=== PATIENT | female | born 1985 | race Caucasian/White ===

== ENCOUNTER 2018-05-12 11:00 | Outpatient (CLI) | payer MEDICAID ==
--- NOTE | 2018-05-12 11:35 | Non Stress Test Report ---
Non Stress Test Datetime Report Generated by CPN: 05/12/2018 11:35 DEMOGRAPHIC EGA NST: 37.3 INDICATION Indication for Study: Polyhydramnios; Diabetes Mellitus VITAL SIGNS Temperature - NST: 97.7 Pulse - NST: 90 RESP - NST: 18 NBPSYS NST: 115 NBPDIA NST: 61 MONITORING Monitor Explained: Monitor Explained; Test Explained; Patient Verbalized Understanding Time on Monitor: 05/12/2018 11:14 Time off Monitor: 05/12/2018 11:34 NST Duration: 20 NST INTERVENTIONS NST Interventions: PO Hydration; Reposition Patient Physician Notified NST: DR VALERA BABY A: [id number] BABY A Movement : Present Contraction Frequency : NONE FHR Baseline : 135 Accelerations : 15X15 Decelerations : None Variability : Moderate 6-25bpm NST Review: Meets Criteria for Reactive NST NST Review and Verified By : JAZLYN Lawler Results: Reactive NST REPORT Report Trigger: Send Report
== END 2018-05-12 11:40 | disposition home or self-care (01) ==
LOC: LC 11:00
PROVIDERS: ATTEND Student in an Organized Health Care Education/Training Program
PROC: 4A1HXCZ Monitoring of Products of Conception, Cardiac Rate, External Approach (ICD-10-PCS; principal; 2018-05-12)
DX: O40.3XX0 Polyhydramnios, third trimester, not applicable or unspecified (principal); O24.419 Gestational diabetes mellitus in pregnancy, unspecified control; Z3A.37 37 weeks gestation of pregnancy
CPT/HCPCS: 59025

== ENCOUNTER 2018-05-23 06:07 | Inpatient (IN) | payer MEDICAID ==
[2018-05-20 11:16] LABS: ABSOLUTE LYMPHOCYTES (AUTO) 1.6 10^3/uL (0.5-4.7); ABSOLUTE MONOCYTES (AUTO) 0.6 10^3/uL (0.1-1.4); BASOPHILS % (AUTO) 0.1 % (0-2); EOSINOPHILS % (AUTO) 0.1 % (0-6); HEMATOCRIT 39.4 % (36.0-47.0); HEMOGLOBIN 13.5 g/dL (12.0-15.5); LYMPHOCYTES % (AUTO) 14.4 % (13-45); MEAN CORPUSCULAR HEMOGLOBIN 27.9 pg (27.0-33.4); MEAN CORPUSCULAR HGB CONC 34.1 g/dL (32.0-36.0); MEAN CORPUSCULAR VOLUME 82 fl (80-97); MONOCYTES % (AUTO) 5.1 % (3-13); PLATELET COUNT 131 10^3/uL (150-450); RED BLOOD COUNT 4.82 10^6/uL (3.72-5.28); SEGMENTED NEUTROPHILS % (AUTO) 80.3 % (42-78); TOTAL CELLS COUNTED % (AUTO) 100 %; WHITE BLOOD COUNT 11.3 10^3/uL (4.0-10.5)
[2018-05-20 11:31] LABS: APPEARANCE,URINE SLIGHTLY-CLOUDY; BILIRUBIN,URINE NEGATIVE (NEGATIVE); COLOR,URINE YELLOW; GLUCOSE, URINE NEGATIVE (NEGATIVE); KETONES,URINE TRACE mg/dL (NEGATIVE); LEUKOCYTE ESTERASE,URINE TRACE (NEGATIVE); NITRITE,URINE NEGATIVE (NEGATIVE); PROTEIN,URINE NEGATIVE (NEGATIVE); UROBILINOGEN,URINE NEGATIVE mg/dL (<2.0)
[2018-05-20 11:46] LABS: URINE AMPHETAMINES SCREEN NEGATIVE; URINE BARBITURATES SCREEN NEGATIVE; URINE BENZODIAZEPINES SCREEN NEGATIVE; URINE COCAINE SCREEN NEGATIVE; URINE MARIJUANA (THC) SCREEN NEGATIVE; URINE METHADONE SCREEN NEGATIVE; URINE PHENCYCLIDINE SCREEN NEGATIVE
[~2018-05-23 06:07] MED LIST: CEFAZOLIN 2 GM/D5W RTU 2 GM/50 ML RTUPB IV PRN; LACTATED RINGERS 1000 ML IV PRN; LIDOCAINE 0.5% INJ-PF (5 MG/ML) 50 ML SDV SUBCUT PRN; RINGERS SOLUTION,LACTATED 1,000 ML IV PRN
[2018-05-23] MEDS ORDERED: CEFAZOLIN 1 GM/D5W RTU 2 GM/100 ML RTUPB IV ONE (06:21)
[2018-05-23] MEDS ORDERED: FENTANYL CITRATE INJ/PF 100 MCG/2 ML AMPUL ONE (08:34)
[2018-05-23] MEDS ORDERED: ONDANSETRON HCL INJ/PF 4 MG/2 ML SDV ONE (08:34)
[2018-05-23] MEDS ORDERED: OXYTOCIN 10 UNIT/ML VIAL ONE (08:34)
[2018-05-23] MEDS ORDERED: BUPIVACAINE HCL/DEX-WATER/PF 15 MG/2 ML AMPULE ONE (08:34)
[2018-05-23] MEDS ORDERED: MIDAZOLAM 2 MG/2 ML INJ ONE (08:35)
[2018-05-23] MEDS ORDERED: MEPERIDINE HCL/PF INJ 25 MG/1 ML DISP.SYRIN IV PRN (09:08)
[2018-05-23] MEDS ORDERED: DIPHENHYDRAMINE HCL 50 MG/ML VIAL IV PRN (09:08)
[2018-05-23] MEDS ORDERED: FENTANYL CITRATE INJ/PF 100 MCG/2 ML AMPUL IV PRN ×3 (09:08)
[2018-05-23] MEDS ORDERED: PROMETHAZINE HCL INJ 25 MG/1 ML VIAL IV PRN ×3 (09:08→13:30)
[2018-05-23] MEDS ORDERED: SIMETHICONE 80 MG TAB.CHEW PO PRN (09:36)
[2018-05-23] MEDS ORDERED: MORPHINE SULFATE 10 MG/ML INJ IM PRN (09:36)
[2018-05-23] MEDS ORDERED: ACETAMINOPHEN 325 MG TABLET PO PRN (09:36)
[2018-05-23] MEDS ORDERED: MEASLES,MUMPS&RUBELLA VACC/PF 0.5 ML VIAL SUBCUT PRN (09:36)
[2018-05-23] MEDS ORDERED: OXYTOCIN/NORMAL SALINE 20 UNIT/1,000 ML RTUINJ IV PRN (09:36)
[2018-05-23] MEDS ORDERED: OXYCODONE-ACETAMINOPHEN 5-325 MG TABLET PO PRN (09:36)
[2018-05-23] MEDS ORDERED: DIPH/PERTUSS(ACELL)/TETANUS VAC/PF 0.5 ML SYR (>=10YO) IM PRN ×2 (09:36→13:30)
--- NOTE | 2018-05-23 09:39 | PDOC DELIVERY SUMMARY ---
Delivery Summary - Maternal Hx : IV PRANAY: 05/30/18 Gestational Age: 39 weeks Risk Factors: Gestational Diabetes Ruptured Membranes: AROM Fluids: Clear - Delivery Labor: Not In Labor Presentation: Vertex Uterine Contraction Monitoring: External Support Person Present: Yes : Scheduled Nuchal Cord: No - Medications Type of Anesthesia:: Spinal
[2018-05-23] MEDS ORDERED: OXYTOCIN/NORMAL SALINE 20 UNIT/1,000 ML RTUINJ ONE (09:41)
[2018-05-23] MEDS ORDERED: KETOROLAC TROMETHAMINE INJ/PF 30 MG/1 ML SDV ONE (10:57)
[2018-05-23] MEDS: FENTANYL CITRATE INJ/PF 100 MCG/2 ML AMPUL ONE ×2 (11:00→11:04)
[2018-05-23] MEDS: PRENATAL VITAMIN W DHA CAPSULE PO SCH (11:55)
[2018-05-23] MEDS: DOCUSATE SODIUM 100 MG CAPSULE PO SCH ×2 (11:55→17:18)
[2018-05-23] MEDS: OXYCODONE-ACETAMINOPHEN 5-325 MG TABLET PO PRN ×2 (12:38→16:51)
[2018-05-23] MEDS ORDERED: HYDROMORPHONE HCL INJ/PF 2 MG/ML AMPULE IV PRN (13:15)
--- NOTE | 2018-05-23 13:50 | OPERATIVE REPORT E ---
Operative Report NAME: SANDRO GARZA : 1985 AGE: 33Y DATE OF SURGERY: 05/23/2018 ROOM: 228 PREOPERATIVE DIAGNOSES: 1. INTRAUTERINE AT TERM, REPEAT . 2. *------* DM. 3. POLYHYDRAMNIOS. POSTOPERATIVE DIAGNOSIS: 1. INTRAUTERINE AT TERM, REPEAT . 2. *------* DM. 3. POLYHYDRAMNIOS. OPERATION: Repeat low transverse , delivery viable female. Weight 9 pounds 14 ounces. Apgars of 9 and 9. SURGEON: Courtney HONG M.D. ESTIMATED BLOOD LOSS: Less than 1000 mL. ANESTHESIA: Spinal. TISSUE REMOVED OR ALTERED: Placenta. PROCEDURE: The patient was placed in a supine position, rolled on her right side, prepped and draped in sterile fashion. Pfannenstiel incision was made to an existing Pfannenstiel scar and the incision was extended through subcutaneous tissue and fascia with sharp dissection. The fascia was sharply divided. The rectus muscles were bluntly and sharply divided. The uterus was nicked in the midline and extended bilaterally. The was then delivered via Kiwi extraction through the uterine and abdominal incisions. Nose and mouth suctioned with bulb syringe. Cord was clamped. The was passed from the table. Placenta was manually extracted. Uterus was closed in 2 layers, first a running stitch with 0 Vicryl, the second with a Lembert suture imbricating the first layer. There were several areas of bleeding noted and these were all controlled with [id number]-go-[id number] sutures of 0 Vicryl. Hemostasis was noted. The fascia was closed with 0 Vicryl in a running fashion. The subcutaneous was closed with interrupted 3-0 Chromic and the skin was closed with subcutaneous absorbable nick. Her urine remained clear throughout the procedure. She was taken to the recovery room in good condition and the infant to nursery in good condition. DICTATING PHYSICIAN: Courtney HONG M.D. [id number] PHY#: [id number] ID: [id number] JOB#: [id number] ACCT: [id number] cc:Courtney HONG M.D. >
[2018-05-23] MEDS ORDERED: KETOROLAC TROMETHAMINE INJ/PF 30 MG/1 ML SDV IV SCH (14:00)
[2018-05-23] MEDS: KETOROLAC TROMETHAMINE INJ/PF 30 MG/1 ML SDV IV SCH (17:18)
[2018-05-24] MEDS: OXYCODONE-ACETAMINOPHEN 5-325 MG TABLET PO PRN ×4 (00:12→20:17)
[2018-05-24] MEDS: KETOROLAC TROMETHAMINE INJ/PF 30 MG/1 ML SDV IV SCH (02:28)
[2018-05-24 07:19] LABS: HEMATOCRIT 32.9 % (36.0-47.0); HEMOGLOBIN 11.5 g/dL (12.0-15.5); MEAN CORPUSCULAR HEMOGLOBIN 28.5 pg (27.0-33.4); MEAN CORPUSCULAR HGB CONC 34.9 g/dL (32.0-36.0); MEAN CORPUSCULAR VOLUME 82 fl (80-97); RED BLOOD COUNT 4.03 10^6/uL (3.72-5.28)
[2018-05-24 07:48] LABS: PLATELET COUNT 96 10^3/uL (150-450); WHITE BLOOD COUNT 8.9 10^3/uL (4.0-10.5)
--- NOTE | 2018-05-24 09:10 | PDOC PROGRESS REPORT ---
Subjective Progress Note for:: 05/24/18 Subjective:: tolerating regular diet. pain controlled with po pain meds. ambulating Reason For Visit: /INDUCTION Physical Exam - Physical Exam Vital Signs: Temp Pulse Resp BP Pulse Ox 98.5 F 72 18 123/69 98 05/24/18 07:42 05/24/18 07:42 05/24/18 07:42 05/24/18 07:42 05/24/18 07:42 Intake & Output 05/23/18 05/24/18 05/25/18 06:59 06:59 06:59 Intake Total 3650 Output Total 1625 Balance 2024 Weight 113.398 kg 97.1 kg General appearance: PRESENT: no acute distress, cooperative GI/Abdominal exam: PRESENT: soft - Obstetrical Exam Fundal Height: 1/u - 2/u Result Laboratory Results: 05/24/18 06:51 05/24/18 06:51 WBC 8.9 RBC 4.03 Hgb 11.5 L Hct 32.9 L MCV 82 MCH 28.5 MCHC 34.9 RDW 15.0 H Plt Count 96 L Assessment & Plan - Time Time Spent with patient: Less than 15 minutes Anticipated discharge: Home Within: within 24 hours - Plan Summary Plan Summary: discharge in AM
[2018-05-24] MEDS: DOCUSATE SODIUM 100 MG CAPSULE PO SCH ×2 (09:49→17:27)
[2018-05-24] MEDS: PRENATAL VITAMIN W DHA CAPSULE PO SCH (09:49)
[2018-05-24] MEDS: IBUPROFEN 800 MG TABLET PO SCH ×3 (11:12→23:28)
[2018-05-25] MEDS: OXYCODONE-ACETAMINOPHEN 5-325 MG TABLET PO PRN ×3 (03:15→14:16)
[2018-05-25] MEDS: IBUPROFEN 800 MG TABLET PO SCH ×2 (05:04→12:56)
[2018-05-25] MEDS: DOCUSATE SODIUM 100 MG CAPSULE PO SCH (09:53)
[2018-05-25] MEDS: PRENATAL VITAMIN W DHA CAPSULE PO SCH (09:53)
--- NOTE | 2018-05-25 10:13 | PDOC DISCHARGE SUMMARY ---
Final Diagnosis Discharge Date: 05/25/18 - Final Diagnosis (1) Status post repeat low transverse section Is this a current diagnosis for this admission?: Yes Discharge Data - Discharge Medication Home Medications: Glyburide/Metformin HCl [Glyburide-Metformin 5-500 mg] 1 tab PO QAM 05/12/18 Glyburide/Metformin HCl [Glyburide-Metformin 5-500 mg] 2 tab PO QHS 05/12/18 Vit/Iron Fum/Folic AC [ Tablet] 1 tab PO DAILY 05/12/18 Reason(s) for Admission: Ceasarean Section-Repeat Procedures: None - Diagnosis Test Laboratory: Temp Pulse Resp BP Pulse Ox 98.0 F 103 H 17 130/70 H 100 05/25/18 08:13 05/25/18 08:13 05/25/18 08:13 05/25/18 08:13 05/25/18 08:13 05/20/18 05/20/18 05/24/18 10:30 10:32 06:51 RBC 4.82 4.03 Hgb 13.5 11.5 L Hct 39.4 32.9 L Urine Opiates Screen NEGATIVE - Discharge information/Instructions Discharge Activity: Activity As Tolerated Discharge Diet: Regular Disposition: HOME, SELF-CARE Follow up with: [facility] in: 1
--- NOTE | 2018-05-25 10:36 | PDOC PROGRESS REPORT ---
Subjective-OB Progress Note for:: 05/25/18 Subjective: s/p repeat c section bonding well with spouse and baby- attempting to breastfeed abdomen soft and nontender ff@u-2 mild lochia +flatus/ no bm incision dry and intact noted 1 cm non approximation- no oozing or redness noted apply steri strips- precautions reviewed with pt and spouse d/c home rtc 1 week Physical Exam (OB) Vital Signs: Temp Pulse Resp BP Pulse Ox 98.0 F 103 H 17 130/70 H 100 05/25/18 08:13 05/25/18 08:13 05/25/18 08:13 05/25/18 08:13 05/25/18 08:13 Intake & Output 05/24/18 05/25/18 05/26/18 06:59 06:59 06:59 Intake Total 3650 1890 Output Total 1625 Balance 2024 1889 Weight 97.1 kg 97.7 kg - PIH/Pre-Eclampsia DTR's: 1 + Clonus: Negative Headache: Absent Epigastric Pain: No Visual Changes: No - Dressing Removed: No Incision: Open Closure Type: Surgical Glue - Lochia Lochia Amount: Scant < 10 ml Lochia Color: Rubra/Red - Abdomen Description: Soft, Round Hernia Present: No Fundal Description: Firm, Midline Fundal Height: u/u - u/2 Objective-Diagnostic Laboratory: 05/24/18 06:51 Assessment and Plan(PN) - Assessment and Plan (1) Status post repeat low transverse section Is this a current diagnosis for this admission?: Yes - Disposition Anticipated Discharge: Home
[2018-05-25 12:18] VITALS: BP 126/66
== END 2018-05-25 16:45 | disposition home or self-care (01) | DRG 765 ==
LOC: 2S 06:07
PROVIDERS: ADMIT Obstetrics & Gynecology Gynecology; ATTEND Obstetrics & Gynecology Gynecology
PROC: 4A1HXCZ Monitoring of Products of Conception, Cardiac Rate, External Approach (ICD-10-PCS; 2018-05-23)
PROC: 10D00Z1 Extraction of Products of Conception, Low, Open Approach (ICD-10-PCS; principal; 2018-05-23 09:00)
DX: O24.429 Gestational diabetes mellitus in childbirth, unspecified control (principal); O40.3XX0 Polyhydramnios, third trimester, not applicable or unspecified; O34.211 Maternal care for low transverse scar from previous cesarean delivery; Z28.21 Immunization not carried out because of patient refusal; Z3A.39 39 weeks gestation of pregnancy; Z37.0 Single live birth
CPT/HCPCS: 1961; 36415; 59025; 80307; 81001; 82962; 85025; 85027; 86850; 86900; 86901; 94799; J1170; J1885; J2250; J2405; J2590; J3010; J3490